=== PATIENT | female | born 1945 | race Caucasian/White ===

== ENCOUNTER → 2017-10-02 | Outpatient (CLI) | payer MEDICARE ==
[~2017-10-02] MED LIST: AMOX-559 PO; BENA1TAB49 PO; HYDR-317 PO; NIT4 SL; NO ROUTINE MEDS; PRED20TA6 PO
--- NOTE | 2017-10-02 12:36 | RADIOLOGY IMAGING REPORT ---
FACILITY: [facility] - [place] PATIENT NAME: Joana Day : 1945 MR: [id number] V: [id number] EXAM DATE: ORDERING PHYSICIAN: BRIGITTE WOODSON TECHNOLOGIST: Location: [facility] Patient: Joana Day : 1945 Visit/Account:[id number] Date of Sevice: 10/02/2017 CHEST PA AND LAT HISTORY: Cough. COMPARISON: None FINDINGS: Cardiomediastinal contours: The heart size is normal. Lungs and pleura: There is no finding of an infiltrate, lymphadenopathy or pleural effusion. There i s mild hyperinflation of the lungs. Bones/soft tissues: There are no findings of a fracture. IMPRESSION: No active disease in the chest. Report Dictated By: Lorenzo Shaikh MD at 10/02/2017 12:31 PM Report E-Signed By: Lorenzo Shaikh MD at 10/02/2017 12:32 PM WSN:[email or web address]
== END ==
LOC: RAD 11:58
PROVIDERS: ATTEND Nurse Practitioner Family
DX: R05 Cough (principal)
CPT/HCPCS: 71046

== ENCOUNTER 2018-06-18 09:53 | Emergency (ER) | payer MEDICARE ==
[2018-06-18] MEDS ORDERED: NS(*) 0.9% 1000 ML BAG 1,000 ML IV ONE (10:01)
[2018-06-18] MEDS ORDERED: HYDR-2966 PO (10:04)
[2018-06-18] MEDS ORDERED: ALBUTEROL/IPRATROPIUM 3 ML NEB NEB ONE (10:05)
[2018-06-18] MEDS ORDERED: NITROGLYCERIN 0.4 MG SUBL SL SCH (10:05)
[2018-06-18 10:14] LABS: PLATELET COUNT, AUTOMATED 374 K/uL (150-450)
[2018-06-18 10:22] LABS: INR 0.93
[2018-06-18] MEDS ORDERED: DEXAMETHASONE SOD PHOS 10MG/ML IVP ONE (10:25)
--- NOTE | 2018-06-18 11:08 | EKG ---
FACILITY: [facility] PATIENT NAME: DELICIA MONCADA : [id number] MR: [id number] V: [id number] EXAM DATE: ORDERING PHYSICIAN: TONYA DUQUE TECHNOLOGIST: Test Reason : Blood Pressure : / mmHG Vent. Rate : 074 BPM Atrial Rate : 074 BPM P-R Int : 168 ms QRS Dur : 094 ms QT Int : 414 ms P-R-T Axes : 071 065 074 degrees QTc Int : 459 ms Sinus rhythm with premature atrial complexes Otherwise normal ECG No previous ECGs available Confirmed by RAJESH REILLY ([id number]) on 06/19/2018 6:33:51 AM Referred By: Confirmed By:RAJESH REILLY
--- NOTE | 2018-06-18 11:16 | RADIOLOGY IMAGING REPORT ---
[place] [facility] [place] NAME: Joana Day : 1945 MR: [id number] V: [id number] EXAM DATE: ORDERING PHYSICIAN: TONYA DUQUE TECHNOLOGIST: Location: [facility] Patient: Joana Day : 1945 Visit/Account:[id number] Date of Sevice: 06/18/2018 Exam type: CHEST PA LAT History: Chest Pain Comparison: October 02, 2017. Findings: There is hyperinflation of the lung espana. There is no evidence of acute appearing infiltrates, ple ural effusions or pulmonary edema. The cardiac silhouette is normal in size. Trachea is in midline. IMPRESSION: 1. Hyperinflation of the lung espana although no evidence of acute pulmonary consolidation Report Dictated By: Jessica Parks MD at 06/18/2018 10:40 AM Report E-Signed By: Jessica Parks MD at 06/18/2018 10:41 AM WSN:[email or web address]
[2018-06-18 11:30] VITALS: BP 148/83
[2018-06-18] MEDS ORDERED: PRED50TA22 PO (11:36)
[2018-06-18] MEDS ORDERED: ALBU8.5H IH (11:36)
--- NOTE | 2018-06-18 11:37 | ER Report ---
History and Physical Time Seen By MD: 10:00 Hx. of Stated Complaint: CHEST PAIN, DIZZINESS, COUGH, SOB X 1 WEEK. FALL LAST WEEK. HPI/ROS CHIEF COMPLAINT: Chest pain, progressive dyspnea HISTORY OF PRESENT ILLNESS: Patient is a 72-year-old female with a history of COPD active smoking, here with a one-week history of stuttering chest pain which lasts for several minutes at a time, worsens with exertion. Patient reports a long-standing history of smoking, and complains of feeling dizzy and jittery as well. Patient denies taking inhalers at home. Patient is afebrile, hemodynamically stable at time of evaluation. REVIEW OF SYSTEMS: Constitutional: No fever, no chills. Eyes: No discharge. ENT: No sore throat. Cardiovascular: No chest pain, no palpitations. Respiratory: + cough, + shortness of breath. Gastrointestinal: No abdominal pain, no vomiting. Genitourinary: No hematuria. Musculoskeletal: + Left lower lateral back pain in the paraspinal musculature with no midline back pain Skin: No rashes. Neurological: Jittery, dizzy Allergies: Coded Allergies: No Known Allergies (Verified Allergy, Mild, 06/18/18) Home Meds Active Scripts Prednisone (PREDNISONE) 50 Mg Tablet, 50 MG PO QDAY for 5 Days, #5 TAB Prov:TONYA DUQUE DO 06/18/18 Albuterol Sulfate 90 Mcg/Act (PROAIR HFA 90 MCG/ACT) 8.5 Gm Hfa.aer.ad, 2 PUFF IH Q4-6H, #1 INHALER Prov:TONYA DUQUE DO 06/18/18 Reported Medications Hydrochlorothiazide (HYDROCHLOROTHIAZIDE) 25 Mg Tablet, 0.5 TAB PO PRN, TAB 06/18/18 Benazepril/Hydrochlorothiazide (Lotensin Hct 20/25 Tablet) 1 Tab Tablet, 1 TAB PO QDAY, #30 0 Refills 04/17/11 Discontinued Reported Medications [No Routine Meds] No Conflict Check, 0 Refills 04/17/11 Discontinued Scripts Hydrocodone/Acetaminophen (Lortab 5-325 mg Tablet) 1 Each Tablet, 1 TAB PO Q4H PRN for PAIN, #12 TAB 0 Refills Prov:CLAU BUCKLEY MD 10/24/13 Prednisone (PREDNISONE) 20 Mg Tablet, 60 MG PO QDAY, #12 TAB 0 Refills Prov:CLAU BUCKLEY MD 10/24/13 Amoxicillin/Pot Clav 875-125 Mg Tab (AUGMENTIN 875-125 TABLET) 1 Each Tablet, 1 TAB PO Q12H, #20 TAB 0 Refills TAKE ONE TABLET BY MOUTH EVERY 12 HOURS Prov:CLAU BUCKLEY MD 10/24/13 Hx Smoking: Yes Smoking Status: Current: Every Day Smoker, Heavy Tobacco Smoker Exposure to Second Hand Smoke?: Yes Hx Substance Use Disorder: No Hx Alcohol Use: Yes (OCC) Constitutional Vital Sign - Last 24 Hours 06/18/18 06/18/18 06/18/18 06/18/18 09:56 10:05 10:05 10:15 Temp 97.7 Pulse 86 68 70 Resp 20 18 18 B/P (MAP) 149/79 Pulse Ox 96 93 O2 Delivery Room Air Room Air Physical Exam General Appearance: The patient is alert, has no immediate need for airway protection and no signs of toxicity. Nontoxic-appearing Eyes: Pupils equal and round no pallor or injection. ENT, Mouth: Mucous membranes are moist. Respiratory: Diminished and coarse breath sounds bilaterally with end expiratory wheezing Cardiovascular: Regular rate and rhythm. Gastrointestinal: Abdomen is soft and non tender, no masses, bowel sounds normal. Neurological: No acute focal neurological findings Skin: Warm and dry, no rashes. Musculoskeletal: Neck is supple non tender. Extremities are nontender, nonswollen and have full range of motion. DIFFERENTIAL DIAGNOSIS: After history and physical exam differential diagnosis was considered for chest pain including but not limited to myocardial ischemia, pericarditis pulmonary embolus, chest wall pain, pleural inflammation and pulmon patric infectious causes, shortness of breath including but not limited to pulmonary infectious process, COPD, asthma, pulmonary embolus and congestive heart failure. Medical Decision Making Data Points Result Diagram: 06/18/18 1004 06/18/18 1004 Laboratory Hematology Test 06/18/18 10:04 Red Blood Count 4.80 M/uL (4.17-5.56) Mean Corpuscular Volume 93.0 fL (80.0-96.0) Mean Corpuscular Hemoglobin 32.1 pg (26.0-33.0) Mean Corpuscular Hemoglobin Concent 34.6 g/dL (32.0-36.0) Red Cell Distribution Width 13.0 % (11.5-14.5) Mean Platelet Volume 6.7 fL (7.2-11.1) Neutrophils (%) (Auto) 60.5 % (39.4-72.5) Lymphocytes (%) (Auto) 25.8 % (17.6-49.6) Monocytes (%) (Auto) 9.4 % (4.1-12.4) Eosinophils (%) (Auto) 3.4 % (0.4-6.7) Basophils (%) (Auto) 0.9 % (0.3-1.4) Nucleated RBC Relative Count (auto) 0.0 /100WBC Neutrophils # (Auto) 4.6 K/uL (2.0-7.4) Lymphocytes # (Auto) 1.9 K/uL (1.3-3.6) Monocytes # (Auto) 0.7 K/uL (0.3-1.0) Eosinophils # (Auto) 0.3 K/uL (0.0-0.5) Basophils # (Auto) 0.1 K/uL (0.0-0.1) Nucleated RBC Absolute Count (auto) 0.00 K/uL Prothrombin Time 12.4 seconds (12.0-14.4) Prothromb Time International Ratio 0.93 Activated Partial Thromboplast Time 33 seconds (23-35) Sodium Level 133 mmol/L (137-145) Potassium Level 3.7 mmol/L (3.5-5.0) Chloride Level 98 mmol/L (98-107) Carbon Dioxide Level 23 mmol/L (22-31) Blood Urea Nitrogen 11 mg/dl (7-18) Creatinine 0.40 mg/dl (0.52-1.04) Glomerular Filtration Rate Calc > 60.0 Random Glucose 99 mg/dl (75-110) Calcium Level 10.3 mg/dl (8.4-10.2) Total Bilirubin 0.8 mg/dl (0.2-1.3) Aspartate Amino Transf (AST/SGOT) 26 U/L (0-35) Alanine Aminotransferase (ALT/SGPT) 21 U/L (0-56) Alkaline Phosphatase 104 U/L (0-126) Troponin I < 0.012 ng/ml B-Type Natriuretic Peptide 42 pg/ml (0-100) Total Protein 8.4 g/dl (6.3-8.2) Albumin 5.1 g/dl (3.5-5.0) Chemistry Test 06/18/18 10:04 White Blood Count 7.6 k/uL (4.5-11.0) Red Blood Count 4.80 M/uL (4.17-5.56) Hemoglobin 15.4 g/dL (12.0-16.0) Hematocrit 44.6 % (34.0-47.0) Mean Corpuscular Volume 93.0 fL (80.0-96.0) Mean Corpuscular Hemoglobin 32.1 pg (26.0-33.0) Mean Corpuscular Hemoglobin Concent 34.6 g/dL (32.0-36.0) Red Cell Distribution Width 13.0 % (11.5-14.5) Platelet Count 374 K/uL (150-450) Mean Platelet Volume 6.7 fL (7.2-11.1) Neutrophils (%) (Auto) 60.5 % (39.4-72.5) Lymphocytes (%) (Auto) 25.8 % (17.6-49.6) Monocytes (%) (Auto) 9.4 % (4.1-12.4) Eosinophils (%) (Auto) 3.4 % (0.4-6.7) Basophils (%) (Auto) 0.9 % (0.3-1.4) Nucleated RBC Relative Count (auto) 0.0 /100WBC Neutrophils # (Auto) 4.6 K/uL (2.0-7.4) Lymphocytes # (Auto) 1.9 K/uL (1.3-3.6) Monocytes # (Auto) 0.7 K/uL (0.3-1.0) Eosinophils # (Auto) 0.3 K/uL (0.0-0.5) Basophils # (Auto) 0.1 K/uL (0.0-0.1) Nucleated RBC Absolute Count (auto) 0.00 K/uL Prothrombin Time 12.4 seconds (12.0-14.4) Prothromb Time International Ratio 0.93 Activated Partial Thromboplast Time 33 seconds (23-35) Glomerular Filtration Rate Calc > 60.0 Calcium Level 10.3 mg/dl (8.4-10.2) Total Bilirubin 0.8 mg/dl (0.2-1.3) Aspartate Amino Transf (AST/SGOT) 26 U/L (0-35) Alanine Aminotransferase (ALT/SGPT) 21 U/L (0-56) Alkaline Phosphatase 104 U/L (0-126) Troponin I < 0.012 ng/ml B-Type Natriuretic Peptide 42 pg/ml (0-100) Total Protein 8.4 g/dl (6.3-8.2) Albumin 5.1 g/dl (3.5-5.0) Coagulation Test 06/18/18 10:04 Prothrombin Time 12.4 seconds Prothromb Time International Ratio 0.93 Activated Partial Thromboplast Time 33 seconds EKG/Imaging Imaging PATIENT NAME: Joana Day : 1945 MR: [id number] V: [id number] EXAM DATE: ORDERING PHYSICIAN: TONYA DUQUE TECHNOLOGIST: Location: [facility] Patient: Joana Day : 1945 Visit/Account:[id number] Date of Sevice: 06/18/2018 Exam type: CHEST PA LAT History: Chest Pain Comparison: October 02, 2017. Findings: There is hyperinflation of the lung espana. There is no evidence of acute appearing infiltrates, pleural effusions or pulmonary edema. The cardiac silhouette is normal in size. Trachea is in midline. IMPRESSION: 1. Hyperinflation of the lung espana although no evidence of acute pulmonary consolidation ED Course/Re-evaluation ED Course Patient is a 72-year-old female here with complaints of progressive dyspnea, worsening cough, dizziness, jitteriness, chest pain. Patient symptoms have been present for approximately one week, intermittent with chest pain lasting several minutes at a time. One set troponin was negative, EKG showed no ischemic changes. There was no leukocytosis, electrolytes and kidney function were stable. Chest x-ray showed hyperinflated lungs without signs of consolidation. Patient received DuoNeb and had significant relief of shortness breath and chest pain. Patient was given Decadron, normal saline bolus. Patient was started on a course of prednisone 5 day 50 mg. She was given a prescription for albuterol i nhaler due to significant relief of breathing with DuoNeb. Recommend close PCP follow-up. Return precautions provided. Patient is hemodynamically stable at time of discharge. Decision to Disposition Date: Jun 18, 2018 Decision to Disposition Time: 11:33 Depart Departure Latest Vital Signs Vital Signs Date Time Temp Pulse Resp B/P (MAP) Pulse Ox O2 Delivery O2 Flow Rate FiO2 06/18/18 10:15 70 18 06/18/18 10:05 93 Room Air 06/18/18 09:56 97.7 149/79 Impression: Primary Impression: Shortness of breath Additional Impression: Chest pain Condition: Improved Disposition: HOME OR SELF-CARE New Scripts Prednisone (PREDNISONE) 50 Mg Tablet 50 MG PO QDAY for 5 Days, #5 TAB Prov: TONYA DUQUE DO 06/18/18 Albuterol Sulfate 90 Mcg/Act (PROAIR HFA 90 MCG/ACT) 8.5 Gm Hfa.aer.ad 2 PUFF IH Q4-6H, #1 INHALER Prov: TONYA DUQUE DO 06/18/18 Departure Forms: Medications Reconciliation, Patient Portal Information, ER Transition Record Patient Instructions: COPD (Chronic Obstructive Pulmonary Disease) (ED) Additional Instructions: You may take 2 puffs of your inhaler every 4-6 hours as needed for shortness breath, wheezing. Please take one tablet of prednisone or 50 mg daily for the next 5 days. Please follow-up with your family doctor in the next 24-48 hours. Please return immediately if she develop recurrent chest pain, increasing shortness breath, fevers or chills. Problem Qualifiers TONYA DUQUE DO Jun 18, 2018 11:36
[2018-06-18] MEDS ORDERED: NITROGLYCERIN 0.4 MG SUBL SL ONE (11:43)
== END 2018-06-18 11:40 | disposition home or self-care (01) ==
LOC: ER 10:04
DX: R07.9 Chest pain, unspecified (principal); R06.02 Shortness of breath
CPT/HCPCS: 71046; 83880; 84484; 85025; 85610; 85730; 93005; 94640; 96361; 96374; 99284; A9270; J1100; J7030; J7620; 82040; 82247; 82310; 82374; 82435; 82565; 82947; 84075; 84132; 84155; 84295; 84450; 84460; 84520